=== PATIENT | male | born 1950 | race Two or more races ===

== ENCOUNTER 2016-08-07 11:09 | Emergency (ER) | payer OTHER ==
[2016-08-07 11:21] VITALS: BP 151/82; BMI 26.6
--- NOTE | 2016-08-07 11:58 | PDOC ---
*Physical Exam - Vital Signs Last Vital Signs Temp Pulse Resp BP Pulse Ox 98.3 F 70 18 151/82 100 08/07/16 11:17 08/07/16 11:17 08/07/16 11:17 08/07/16 11:17 08/07/16 11:17 - Physical Exam Comments: 08/07/16 11:58 MIDLEVEL NOTE Pt seen by Midlevel Provider under my direct supervision. Pt interviewed and examined. Ancillary studies reviewed. I agree with plan as outlined by Midlevel Provider. 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 Multilevel facet joint arthropathy and DJD *DC/Admit/Observation/Transfer Diagnosis at time of Disposition: Strain of cervical portion of right trapezius muscle - Discharge Dispostion Disposition: HOME Condition at time of disposition: Improved - Prescriptions Prescriptions: Oxycodone HCl/Acetaminophen [Percocet 5-325 mg Tablet] 1 - 2 tab PO Q6H PRN #12 tab MDD 4 PRN Reason: Muscle Spasms Diazepam [Valium] 5 mg PO Q8H PRN #15 tablet MDD 3 PRN Reason: Muscle Spasms - Referrals Referrals: Jimmy Horvath MD [Primary Care Provider] - - Patient Instructions Printed Discharge Instructions: DI for Neck Pain Additional Instructions: You must continue the Valium and Percocet for the muscle spasm and apply heat to the affected area . do not operate any heavy machinery while taking this medication and return to ED if symptoms worsen.
[2016-08-07] MEDS ORDERED: OXYCODONE/APAP 5/325MG COMBO TABLET PO ONE (12:20)
[2016-08-07] MEDS ORDERED: diazePAM 5 MG TABLET PO ONE (12:20)
[2016-08-07] MEDS ORDERED: OXYCODONE/APAP 5/325MG COMBO TABLET ONE (12:40)
[2016-08-07] MEDS ORDERED: diazePAM 5 MG TABLET ONE (12:40)
--- NOTE | 2016-08-07 13:41 | PDOC ---
History of Present Illness - General Chief Complaint: Pain Stated Complaint: NECK PAIN Time Seen by Provider: 08/07/16 11:32 History Source: Patient Exam Limitations: No Limitations - History of Present Illness Initial Comments: 08/07/16 13:38 66-year-old male presents to the ED with right neck stiffness that radiates from the base of his skull to his posterior right shoulder. Patient states has been using topicals to the area with no relief and states awoke with this pain 3 days ago. Patient states has chronic nerve pain to his neck but never to this extent. Patient denies weakness, skin discoloration, difficulty swallowing, anterior neck pain, or occipital discomfort. Timing/Duration: constant Severity: moderate Associated Symptoms: reports: other Past History - Past Medical History Allergies/Adverse Reactions: Allergies Allergy/AdvReac Type Severity Reaction Status Date / Time No Known Drug Allergies Allergy Verified 08/07/16 11:21 Home Medications: Ambulatory Orders Losartan/Hydrochlorothiazide [Losartan-Hctz 100-25 mg Tablet] 1 each PO DAILY Aspirin [ASA -] 81 mg PO DAILY 03/17/12 Meloxicam [Mobic -] 15 mg PO DAILY 07/28/14 Metformin HCl [Metformin HCl ER] 500 mg PO BID 07/28/14 Oxycodone HCl/Acetaminophen [Percocet 5-325 mg Tablet -] 1 - 2 tab PO Q6H #60 tab 07/29/14 Anemia: No Asthma: No Cancer: No Cardiac Disorders: No CVA: No COPD: No CHF: No Dementia: No Diabetes: Yes (2000) GI Disorders: No Disorders: No HTN: Yes Hypercholesterolemia: No Liver Disease: No Seizures: No Thyroid Disease: No - Surgical History Abdominal Surgery: No Appendectomy: No Cardiac Surgery: No Cholecystectomy: No Lung Surgery: No Neurologic Surgery: No Orthopedic Surgery: Yes (CERVICAL FUSION 2000) - Immunization History Immunization Up to Date: Yes - Psycho/Social/Smoking Cessation Hx Anxiety: No Suicidal Ideation: No Smoking Status: No Smoking History: Never smoked Have you smoked in the past 12 months: No Number of Cigarettes Smoked Daily: 0 Information on smoking cessation initiated: No Hx Alcohol Use: No Drug/Substance Use Hx: No Substance Use Type: None Hx Substance Use Treatment: No Patient Lives Alone: No Lives with/in: spouse/SO Review of Systems - Review of Systems Able to Perform ROS?: Yes Constitutional: No: Symptoms Reported HEENTM: No: Symptoms Reported Respiratory: No: Symptoms reported Cardiac (ROS): No: Symptoms Reported ABD/GI: No: Symptoms Reported Musculoskeletal: Yes: Muscle Pain, Neck Pain Integumentary: No: Symptoms Reported Neurological: No: Headache, Numbness, Weakness, Dizziness Hematologic/Lymphatic: No: Symptoms Reported *Physical Exam - Vital Signs Last Vital Signs Temp Pulse Resp BP Pulse Ox 98.3 F 70 18 151/82 100 08/07/16 11:17 08/07/16 11:17 08/07/16 11:17 08/07/16 11:08/07/16 11:17 - Physical Exam General Appearance: Yes: Nourished, Appropriately Dressed HEENT: positive: EOMI, HENRY, Normal Voice, TMs Normal, Pharynx Normal. negative : Pale Conjunctivae Neck: positive: Tender (right SCM. No midline tenderness), Supple, Decreased range of motion (unable to rotate or flex/ extend the neck) Respiratory/Chest: positive: Lungs Clear, Normal Breath Sounds. negative: Chest Tender, Respiratory Distress, Accessory Muscle Use Cardiovascular: positive: Regular Rhythm, Regular Rate. negative: Murmur Gastrointestinal/Abdominal: positive: Soft. negative: Tenderness Extremity: positive: Normal Capillary Refill. negative: Pedal Edema Integumentary: positive: Normal Color, Warm, Moist Neurologic: positive: Motor Strength 5/5 ( ambulatory) ED Treatment Course - RADIOLOGY Radiology Studies Ordered: Category Date Time Status CERVICAL SPINE CT W/O CONTR [CT] Stat CT Scan 08/07/16 12:[address] WITHOUT CONTRAST [CT] Stat CT Scan 08/07/16 12:20 Taken - Medications Given in the ED: ED Medications Discontinued Medications Generic Name Dose Route Start Last Admin Trade Name Freq PRN Reason Stop Dose Admin Diazepam 5 mg 08/07/16 12:20 08/07/16 12:42 Valium - PO 08/07/16 12:21 5 mg ONCE ONE Administration Oxycodone/Acetaminophen 1 combo 08/07/16 12:20 08/07/16 12:41 Percocet 5/325 - PO 08/07/16 12:21 1 combo ONCE ONE Administration Medical Decision Making - Medical Decision Making 08/07/16 13:43 Patient with sudden onset of right neck stiffness upon awakening 3 days ago. Patient strike topicals and Tylenol with no relief. Patient states has had similar pain in the past but normally not this long and not to this extent. Patient states history of cervical fusion and denies any postoperative complications. Patient on exam had tenderness to the right SCM with minimal palpation. Patient ordered for head and neck CT secondary to history of questionable CVA and cervical fusion along with Valium and Percocet. 08/07/16 14:25 CT of the head shows no evidence of acute intramural hemorrhage edema, midline shift mass effect, skull fracture. CT of the neck shows no evidence acute fracture, compression, subluxation, or prevertebral soft tissue swelling. Fusion of C5 C6 C7 is seen. Patient states since then better after receiving Percocet and Valium. Patient will be discharged home with the same and told to follow-up with his PCP. *DC/Admit/Observation/Transfer Diagnosis at time of Disposition: Strain of cervical portion of right trapezius muscle - Discharge Dispostion Disposition: HOME Condition at time of disposition: Improved - Referrals Referrals: Jimmy oHrvath MD [Primary Care Provider] - - Patient Instructions Printed Discharge Instructions: DI for Neck Pain Additional Instructions: You must continue the Valium and Percocet for the muscle spasm and apply heat to the affected area . do not operate any heavy machinery while taking this medication and return to ED if symptoms worsen.
[2016-08-07 14:32] VITALS: PULSE 61; TEMP 97.7
== END 2016-08-07 15:05 | disposition home or self-care (01) ==
LOC: JERFT 11:09 → JER 11:09
DX: S16.1XXA Strain of muscle, fascia and tendon at neck level, initial encounter (principal); S46.811A Strain of other muscles, fascia and tendons at shoulder and upper arm level, right arm, initial encounter; X58.XXXA Exposure to other specified factors, initial encounter; Y93.89 Activity, other specified; Y92.038 Other place in apartment as the place of occurrence of the external cause; Y99.8 Other external cause status
CPT/HCPCS: 70450-TC; 72125-TC; 99282-25

== ENCOUNTER 2020-11-15 10:03 | Emergency (ER) | payer OTHER ==
[2020-11-15 10:20] VITALS: TEMP 97.6; BMI 26.6
[2020-11-15] MEDS ORDERED: KETOROLAC TROMETHAMINE 30 MG/1 ML VIAL IM ONE (10:31)
[2020-11-15] MEDS ORDERED: KETOROLAC TROMETHAMINE 30 MG/1 ML VIAL ONE (10:32)
[2020-11-15 11:17] VITALS: BP 156/88; PULSE 60
== END 2020-11-15 11:45 | disposition home or self-care (01) ==
LOC: JERFT 10:03 → JER 10:03 → JERFT 11:45
PROC: 3E0233Z Introduction of Anti-inflammatory into Muscle, Percutaneous Approach (ICD-10-PCS; principal; 2020-11-15)
DX: M54.2 Cervicalgia (principal)
CPT/HCPCS: 72050-TC-FY; 96372; 99284-25

== ENCOUNTER 2022-08-24 09:56 | Emergency (ER) | payer OTHER ==
[2022-08-24 10:06] VITALS: BMI 29.5
[2022-08-24] MEDS ORDERED: SODIUM CHLORIDE 0.9% 500 ML INFUS.BAG IV ONE (11:20)
[2022-08-24] MEDS ORDERED: ACETAMINOPHEN 1000 MG/100 ML BAG IVPB ONE (11:20)
[2022-08-24] MEDS ORDERED: METOCLOPRAMIDE HCL INJECTION 10 MG/2 ML VIAL IVPB ONE (11:20)
[2022-08-24] MEDS ORDERED: METOCLOPRAMIDE HCL INJECTION 10 MG/2 ML VIAL ONE (11:29)
[2022-08-24] MEDS ORDERED: ACETAMINOPHEN INJECTION 100 ML IVPB ONE (11:29)
[2022-08-24 12:12] LABS: BASO % 0.8 % (0-2.0); EOS % 3.1 % (0-4.5); HEMATOCRIT 39.3 % (35.4-49); HEMOGLOBIN 13.5 GM/dL (11.7-16.9); LYMPH % 20.1 % (8-40); MCH 28.3 pg (25.7-33.7); MCHC 34.5 g/dl (32.0-35.9); MEAN CELL VOLUME 82.2 fl (80-96); MEAN PLT VOLUME 7.8 fl (7.5-11.1); PLATELET COUNT 284 10^3/uL (134-434); RBC 4.78 M/mm3 (4.00-5.60); RDW 13.9 % (11.9-15.9); WHITE BLOOD COUNT 7.4 K/mm3 (4.0-10.0)
[2022-08-24 12:30] LABS: POTASSIUM 4.6 mmol/L (3.5-5.1)
[2022-08-24 12:32] LABS: CALCIUM 9.2 mg/dL (8.5-10.1)
[2022-08-24 12:33] LABS: ALBUMIN 3.3 g/dl (3.4-5.0); BLOOD UREA NITROGEN 19.4 mg/dL (7-18)
[2022-08-24 12:36] LABS: CREATININE 1.3 mg/dL (0.55-1.3)
[2022-08-24 12:37] LABS: BILIRUBIN,TOTAL 0.6 mg/dL (0.2-1); TOT PROT 7.1 g/dl (6.4-8.2)
[2022-08-24] MEDS ORDERED: KETOROLAC TROMETHAMINE 30 MG/1 ML VIAL IVPUSH ONE (13:27)
[2022-08-24] MEDS ORDERED: KETOROLAC TROMETHAMINE 30 MG/1 ML VIAL ONE (13:53)
[2022-08-24 14:15] VITALS: BP 133/78; PULSE 78; RESP 19; TEMP 98.4
== END 2022-08-24 14:22 | disposition home or self-care (01) ==
LOC: JER 09:56
PROC: 3E033NZ Introduction of Analgesics, Hypnotics, Sedatives into Peripheral Vein, Percutaneous Approach (ICD-10-PCS; principal; 2022-08-24)
PROC: 3E033GC Introduction of Other Therapeutic Substance into Peripheral Vein, Percutaneous Approach (ICD-10-PCS; 2022-08-24)
PROC: 3E033GC Introduction of Other Therapeutic Substance into Peripheral Vein, Percutaneous Approach (ICD-10-PCS; 2022-08-24)
DX: R51.9 Headache, unspecified (principal); M54.2 Cervicalgia
CPT/HCPCS: 36415; 70450-TC; 72125-TC; 80053; 85025; 99284-25